=== PATIENT | male | born 1985 | race African-American/Black ===

== ENCOUNTER 2019-03-12 01:24 | Emergency (ER) | payer MEDICAID ==
[~2019-03-12] VITALS: Ht 182.9 cm; Wt 88.6 kg
[2019-03-12] MEDS ORDERED: TRAM50TA4 PO (01:47)
[2019-03-12] MEDS ORDERED: LIDOCAINE 1% 10 ML VIAL INJ ONE (02:15)
[2019-03-12 02:35] VITALS: BP 121/80
== END 2019-03-12 02:42 | disposition home or self-care (01) ==
LOC: EMS 01:26
DX: K06.9 Disorder of gingiva and edentulous alveolar ridge, unspecified (principal); F17.210 Nicotine dependence, cigarettes, uncomplicated; F12.90 Cannabis use, unspecified, uncomplicated
CPT/HCPCS: 99283; J3490

== ENCOUNTER 2019-03-12 18:56 | Emergency (ER) | payer MEDICAID ==
[~2019-03-12] VITALS: Ht 183.5 cm; Wt 84.1 kg
[~2019-03-12 18:56] MED LIST: TRAM50TA4 PO
[2019-03-12] MEDS ORDERED: HYDROCODONE/ACETAMINOPHEN 5-325 MG TABLET PO ONE (20:00)
[2019-03-12 20:20] VITALS: BP 121/65
== END 2019-03-12 20:21 | disposition home or self-care (01) ==
LOC: EMS 19:00
DX: K06.9 Disorder of gingiva and edentulous alveolar ridge, unspecified (principal); K08.89 Other specified disorders of teeth and supporting structures; F12.90 Cannabis use, unspecified, uncomplicated; F17.210 Nicotine dependence, cigarettes, uncomplicated
CPT/HCPCS: 99406